=== PATIENT | female | born 1980 | race African-American/Black ===

== ENCOUNTER 2018-02-09 14:16 | Emergency (ER) | payer MEDICAID ==
--- NOTE | 2018-02-09 15:01 | ER Document Report ---
ED Medical Screen (RME) - General Chief Complaint: OB Problem (<20wks) Stated Complaint: CRAMPING/SPOTTING Time Seen by Provider: 02/09/18 14:57 Notes: Patient is complaining of some abdominal cramping and spotting. Patient just found out that she is by a positive home test. She says her last menstrual period was 01/24. This would be the patient's seventh . She has had cramping for the last week and spotting started a couple of days ago. TRAVEL OUTSIDE OF THE [place] IN LAST 30 DAYS: No - Related Data Allergies/Adverse Reactions: No Known Allergies Allergy (Verified 02/09/18 14:16) Past Medical History - Social History Chew tobacco use (# tins/day): No Frequency of alcohol use: None Drug Abuse: None Renal/ Medical History: Denies: Hx Peritoneal Dialysis Physical Exam - Vital signs Vitals: Temp Pulse Resp BP Pulse Ox 98.6 F 80 16 115/67 100 02/09/18 14:18 02/09/18 14:18 02/09/18 14:18 02/09/18 14:18 02/09/18 14:18 Course - Vital Signs Vital signs: Temp Pulse Resp BP Pulse Ox 98.6 F 80 16 115/67 100 02/09/18 14:18 02/09/18 14:18 02/09/18 14:18 02/09/18 14:18 02/09/18 14:18
[2018-02-09 15:43] LABS: ABSOLUTE EOSINOPHILS # (AUTO) 0.1 10^3/uL (0.0-0.6); ABSOLUTE LYMPHOCYTES (AUTO) 2.3 10^3/uL (0.5-4.7); ABSOLUTE MONOCYTES (AUTO) 0.6 10^3/uL (0.1-1.4); ABSOLUTE NEUT (AUTO) 3.5 10^3/uL (1.7-8.2); BASOPHILS % (AUTO) 0.6 % (0-2); EOSINOPHILS % (AUTO) 1.1 % (0-6); HEMATOCRIT 35.8 % (36.0-47.0); LYMPHOCYTES % (AUTO) 35.9 % (13-45); MEAN CORPUSCULAR HEMOGLOBIN 29.8 pg (27.0-33.4); MEAN CORPUSCULAR HGB CONC 33.6 g/dL (32.0-36.0); MEAN CORPUSCULAR VOLUME 89 fl (80-97); MONOCYTES % (AUTO) 9.4 % (3-13); PLATELET COUNT 199 10^3/uL (150-450); RED BLOOD COUNT 4.04 10^6/uL (3.72-5.28); RED CELL DISTRIBUTION WIDTH 13.7 % (11.5-14.0); TOTAL CELLS COUNTED % (AUTO) 100 %; WHITE BLOOD COUNT 6.5 10^3/uL (4.0-10.5)
[2018-02-09 15:49] LABS: APPEARANCE,URINE SLIGHTLY-CLOUDY; BILIRUBIN,URINE NEGATIVE (NEGATIVE); COLOR,URINE YELLOW; GLUCOSE, URINE NEGATIVE (NEGATIVE); KETONES,URINE NEGATIVE (NEGATIVE); LEUKOCYTE ESTERASE,URINE TRACE (NEGATIVE); NITRITE,URINE NEGATIVE (NEGATIVE); PROTEIN,URINE NEGATIVE (NEGATIVE); URINE SPECIFIC GRAVITY 1.028
[2018-02-09] MEDS ORDERED: NORMAL SALINE 1000 ML 1,000 ML IV ONE (17:01)
[2018-02-09] MEDS ORDERED: METOCLOPRAMIDE HCL INJ/PF 10 MG/2 ML SDV IV ONE (17:01)
--- NOTE | 2018-02-09 17:14 | RADIOLOGY REPORT (SQ) ---
EXAM DESCRIPTION: U/S OB TRANSVAGINAL W/O DOP COMPLETED DATE/TIME: 02/09/2018 5:00 pm REASON FOR STUDY: Cramping, spotting . Positive home COMPARISON: None. TECHNIQUE: Transvaginal static and realtime grayscale images acquired of the pelvis. Additional victoria cted spectral and color Doppler images recorded. All images stored on PACs. [facility] [place] CLINICAL DATES: 6 weeks, 5 days LIMITATIONS: None. FINDINGS: FETUS: Candidate gestational sac identified measuring 2.4 cm. No pole identified. ULTRASOUND EGA: 7 weeks, 3 days ULTRASOUND NICOLE: 09/25/2018 EFW: Not applicable less than 20 weeks. CRL: Not visualized. FHR: Not visualized. SURVEY: Too early to assess. AMNIOTIC FLUID: Not applicable. PLACENTA: Not yet developed due to early gestation. SUBCHORIONIC BLEED: No. SIZE OF BLEED: Not applicable. UTERUS: No masses. No anomalies. CERVICAL LENGTH: 4.7 cm. Closed. RIGHT ADNEXA: Right ovary is obscured by bowel gas. LEFT ADNEXA: Left ovary is obscured by bowel gas. FREE FLUID: None. OTHER: No other significant finding. IMPRESSION: Candidate intrauterine gestational sac identified measuring 2.4 cm, sonographic gestatio nal age 7 weeks, 3 days. Early of uncertain viability given lack of identified pole. Recommend follow-up ultrasound in 7 to 14 days to ensure continued development and viability. Trimester of : First - 0 to 13 weeks. TECHNICAL DOCUMENTATION: JOB ID: [id number] [employer]- All Rights Reserved rev Reading location - IP/workstation name: [email or web address]
--- NOTE | 2018-02-09 19:19 | ER Document Report ---
ED GI/ - General Chief Complaint: OB Problem (<20wks) Stated Complaint: CRAMPING/SPOTTING Time Seen by Provider: 02/09/18 14:57 Mode of Arrival: Ambulatory Information source: Patient Notes: Patient is a 37-year-old obese female comes emergency room complaining of being and having some lower abdominal cramping with spotting and some vomiting. Patient states she did not know she was until 1 week ago when she took her home e.p.t. test and it turned positive. Since that point time she has been having developing nausea and vomiting mostly after meals. Begin to the point where she does not want to eat anything but when she tries she throws it up. She is giving him difficulty keeping fluids down. Patient also states that she is having some lower abdominal cramping that is intermittent and that she also has some spotting when she wipes occasionally a pinkish to brownish tinge but is just very minor. Patient is 6 and para 6 last child was delivered 6 years ago. She does not currently have a local DIGITAL FORENSIC ANALYST. TRAVEL OUTSIDE OF THE [place] IN LAST 30 DAYS: No - HPI Patient complains to provider of: , Vaginal bleeding Onset: Last week Timing/Duration: Gradual, Intermittent, Persistent Quality of pain: Cramping Severity at maximum: Moderate Pain Level: 2 Context: Location: Suprapubic, Pelvis Adult Front & Back Diagram: 1 - Area of some mild discomfort on palpation 2 - Local area of cramping that is intermittent. Vaginal bleeding (Compared to normal period): Spotting, Seam Stay Stitcher Menstrual period history: LMP: December 24, 2017 : 6 Para: 6 Abortions: 0 heart tones (bpm): 0 ABO type: B positive OB ultrasound done: Yes vitamins taken: No Sexual history: Active Associated symptoms: Nausea, Vomiting. denies: Vaginal discharge Exacerbated by: Denies Relieved by: Denies Similar symptoms previously: No Recently seen / treated by doctor: No - Related Data Allergies/Adverse Reactions: No Known Allergies Allergy (Verified 02/09/18 14:16) Past Medical History - General Information source: Patient - Social History Smoking Status: Never Smoker Cigarette use (# per day): No Chew tobacco use (# tins/day): No Smoking Education Provided: No Frequency of alcohol use: None Drug Abuse: None Family History: Reviewed & Not Pertinent Patient has suicidal ideation: No Patient has homicidal ideation: No Renal/ Medical History: Denies: Hx Peritoneal Dialysis Review of Systems - Review of Systems Constitutional: No symptoms reported EENT: No symptoms reported Cardiovascular: No symptoms reported Respiratory: No symptoms reported Gastrointestinal: No symptoms reported Genitourinary: No symptoms reported Female Genitourinary: See HPI, , Vaginal bleeding Musculoskeletal: No symptoms reported Skin: No symptoms reported Hematologic/Lymphatic: No symptoms reported Neurological/Psychological: No symptoms reported -: Yes All other systems reviewed and negative Physical Exam - Vital signs Vitals: Temp Pulse Resp BP Pulse Ox 98.6 F 80 16 115/67 100 02/09/18 14:18 02/09/18 14:18 02/09/18 14:18 02/09/18 14:18 02/09/18 14:18 Interpretation: Normal - Notes Notes: PHYSICAL EXAMINATION: GENERAL: Well-appearing, well-nourished and in no acute distress. HEAD: Atraumatic, normocephalic. EYES: Pupils equal round and reactive to light, extraocular movements intact, conjunctiva are normal. ENT: Nares patent, oropharynx clear without exudates. Moist mucous membranes. NECK: Normal range of motion, supple without lymphadenopathy LUNGS: Breath sounds clear to auscultation bilaterally and equal. No wheezes rales or rhonchi. HEART: Regular rate and rhythm without murmurs ABDOMEN: Soft, nontender, nondistended abdomen. No guarding, no rebound. No masses appreciated. Continued examination down to the pelvic area does not show any reproducible type of tenderness or discomfort. Patient has bowel sounds all 4 quads and again she is nontender to percussion or to palpation. Female : Patient preferred not to have the pelvic this time. Musculoskeletal: Normal range of motion, no pitting or edema. No cyanosis. NEUROLOGICAL: Cranial nerves grossly intact. Normal speech, normal gait. Normal sensory, motor exams PSYCH: Normal mood, normal affect. SKIN: Warm, Dry, normal turgor, no rashes or lesions noted. Course - Re-evaluation Re-evalutation: 02/09/18 19:57 Patient originally told me that she was unable to keep any food or fluid down so we went ahead and started an IV we gave her a liter of fluids and we used Reglan for the antinausea medication which seemed to work wonderfully. She was able to have a oral challenge after she had returned from the ultrasound. Her ultrasound though positive with an IUP is concerning for underdevelopment at 7 weeks. I have relayed this to the patient stating that there is not a guarantee that this can go full-term yet. Radiology has requested a repeat ultrasound in 7-14 days and I have informed patient that she really needs to see an OB much sooner than that. I have given her a list of the obese in town plus the women's health clinic. Patient is aware that this is a questionable at best right now. She understands that immediate follow-up by OB is very essential and she will try to contact someone Sunday morning. I have informed her that if she starts to bleed more massively or have increased amount of pain to return to ER for a recheck. - Vital Signs Vital signs: Temp Pulse Resp BP Pulse Ox 98.4 F 71 15 108/61 99 02/09/18 19:29 02/09/18 19:29 02/09/18 19:29 02/09/18 19:29 02/09/18 19:29 - Laboratory Result Diagrams: 02/09/18 15:10 Laboratory results interpreted by me: 02/09/18 02/09/18 02/09/18 15:10 15:10 15:10 Hct 35.8 L Beta HCG, Quant 92645.00 H Urine Urobilinogen 2.0 H Ur Leukocyte Esterase TRACE H Urine Ascorbic Acid 40 H Discharge - Discharge Clinical Impression: Threatened , Hyperemesis gravidarum Condition: Stable Disposition: HOME, SELF-CARE Instructions: Bleeding During Early ([facility]), Ob-Bog Worker Doctors, ([facility]), Threatened Miscarriage ([facility]) Additional Instructions: As we discussed is highly important that she get established with an DIGITAL FORENSIC ANALYST as soon as possible. As we also discussed this is a threatened miscarriage at this point because of the mild spotting you have when you wipe. Also because of the gestational age and size or not matching up very well and there is no heartbeat at 7 weeks. Radiologist recommends a follow-up ultrasound in 7- 14days I would hope that you see an DIGITAL FORENSIC ANALYST sooner than that. I will give you a list of DIGITAL FORENSIC ANALYST's in the area. Also can give you the name of the DIGITAL FORENSIC ANALYST apron operator today which is Dr. Joie Whitney and I will give you her on referral on discharge. You may contact her office to see if she can accommodate you. Should you have increasing amount of bleeding or increasing amount of pain return to ER at once for recheck. Prescriptions: Metoclopramide HCl [Reglan 10 mg Tablet] 1 - 2 tab PO ACHS #25 tablet Forms: Return to Work Referrals: [facility] [Provider Group] - Follow up as needed
[2018-02-09 19:30] VITALS: BP 108/61
== END 2018-02-09 19:30 | disposition home or self-care (01) ==
LOC: ER 14:16
DX: O20.0 Threatened abortion (principal); O21.0 Mild hyperemesis gravidarum; O26.891 Other specified pregnancy related conditions, first trimester; R10.2 Pelvic and perineal pain; O99.211 Obesity complicating pregnancy, first trimester; Z3A.01 Less than 8 weeks gestation of pregnancy
CPT/HCPCS: 99284; 96361; 96374; 86900; 86901; 36415; 84702; 85025; 81001; 76817; J2765; J7030

== ENCOUNTER 2018-03-05 10:08 | Emergency (ER) | payer MEDICAID ==
[2018-03-05] MEDS ORDERED: PROMETHAZINE HCL 25 MG TABLET PO ONE (10:52)
[2018-03-05] MEDS ORDERED: ACETAMINOPHEN 325 MG TABLET PO ONE (10:53)
--- NOTE | 2018-03-05 10:56 | ER Document Report ---
ED Flu Like - General Chief Complaint: Flu Symptoms Stated Complaint: VOMITING, FLU SYMPTOMS Time Seen by Provider: 03/05/18 10:45 Mode of Arrival: Ambulatory Information source: Patient Notes: 37-year-old female who is 9 weeks presents emergency department complaints of headache, chills, generalized weakness, myalgias, rhinorrhea, sore throat, cough intermittently over the last month. Patient states that her children have had similar symptoms. She states that initially her symptoms improved and then she began getting sick again about a week ago. Patient denies any alleviating or exacerbating factors. Has not taken any medication for symptom relief. Patient has had care. She followed up at the women's health clinic yesterday and had an ultrasound done. A live IUP was appreciated. Patient denies any abdominal pain or vaginal bleeding. TRAVEL OUTSIDE OF THE [place] IN LAST 30 DAYS: No - HPI Onset: Other - intermittently over the last month Timing/Duration: Intermittent Quality of pain: No pain Severity: None Pain Level: Denies Associated symptoms: Body/muscle aches, Chills, Nonproductive cough, Headache, Nausea, Rhinnorhea, Sore throat Similar symptoms previously: Yes Recently seen / treated by doctor: No - Related Data Allergies/Adverse Reactions: No Known Allergies Allergy (Verified 02/09/18 14:16) Past Medical History - General Information source: Patient - Social History Smoking Status: Never Smoker Family History: Reviewed & Not Pertinent Patient has suicidal ideation: No Patient has homicidal ideation: No Renal/ Medical History: Denies: Hx Peritoneal Dialysis Review of Systems - Review of Systems Constitutional: Chills EENT: Nose congestion, Nose discharge Cardiovascular: No symptoms reported Respiratory: Cough Gastrointestinal: Diarrhea Genitourinary: No symptoms reported Female Genitourinary: No symptoms reported Musculoskeletal: No symptoms reported Skin: No symptoms reported Hematologic/Lymphatic: No symptoms reported Neurological/Psychological: No symptoms reported -: Yes All other systems reviewed and negative Physical Exam - Vital signs Vitals: Temp Pulse Resp BP Pulse Ox 99.2 F 102 H 18 130/65 H 87 L 03/05/18 10:22 03/05/18 10:22 03/05/18 10:22 03/05/18 10:22 03/05/18 10:22 - Notes Notes: PHYSICAL EXAMINATION: GENERAL: Well-appearing, well-nourished and in no acute distress. HEAD: Atraumatic, normocephalic. EYES: Pupils equal round and reactive to light, extraocular movements intact, conjunctiva are normal. ENT: Nares patent, oropharynx clear without exudates. Moist mucous membranes. NECK: Normal range of motion, supple without lymphadenopathy LUNGS: Breath sounds clear to auscultation bilaterally and equal. No wheezes rales or rhonchi. HEART: Regular rate and rhythm without murmurs ABDOMEN: Soft, nontender, nondistended abdomen. No guarding, no rebound. No masses appreciated. Female : deferred Musculoskeletal: Normal range of motion, no pitting or edema. No cyanosis. NEUROLOGICAL: Cranial nerves grossly intact. Normal speech, normal gait. Normal sensory, motor exams PSYCH: Normal mood, normal affect. SKIN: Warm, Dry, normal turgor, no rashes or lesions noted. Course - Re-evaluation Re-evalutation: 03/05/18 13:02 Labs are positive for influenza and urinary tract infection. I will start the patient on keflex. As her respiratory symptoms have been present for the last month, I will not start tamiflu. Patient instructed to take the antibiotic as directed, to follow up with her GAS WELDER APPRENTICE and primary care physician this week, and to return if she has worsening symptoms. Patient is agreeable with the plan of care. - Vital Signs Vital signs: Temp Pulse Resp BP Pulse Ox 99.2 F 102 H 18 130/65 H 87 L 03/05/18 10:22 03/05/18 10:22 03/05/18 10:22 03/05/18 10:22 03/05/18 10:22 - Laboratory Laboratory results interpreted by me: 03/05/18 11:26 Urine Protein 30 H Urine Urobilinogen 2.0 H Ur Leukocyte Esterase LARGE H Urine Ascorbic Acid 40 H Discharge - Discharge Clinical Impression: Influenza A Urinary tract infection Qualifiers: Urinary tract infection type: site unspecified Hematuria presence: without hematuria Qualified Code(s): N39.0 - Urinary tract infection, site not specified Disposition: HOME, SELF-CARE Instructions: Urinary Tract Infection ([facility]), Influenza ([facility]) Prescriptions: Cephalexin Monohydrate [Keflex 500 mg Capsule] 500 mg PO BID 7 Days #14 capsule Referrals: SHERMAN ANGEL MD [ACTIVE STAFF] - Follow up as needed NATHAN AVILA MD [ACTIVE STAFF] - Follow up as needed
[2018-03-05 12:21] LABS: APPEARANCE,URINE CLOUDY; BILIRUBIN,URINE NEGATIVE (NEGATIVE); COLOR,URINE YELLOW; GLUCOSE, URINE NEGATIVE (NEGATIVE); KETONES,URINE NEGATIVE (NEGATIVE); LEUKOCYTE ESTERASE,URINE LARGE (NEGATIVE); NITRITE,URINE NEGATIVE (NEGATIVE); PROTEIN,URINE 30 mg/dL (NEGATIVE); URINE SPECIFIC GRAVITY 1.032
[2018-03-05 12:30] LABS: A TYPE INFLUENZA AG POSITIVE (NEGATIVE); B INFLUENZA AG NEGATIVE (NEGATIVE)
[2018-03-05] MEDS ORDERED: CEPHALEXIN 500 MG CAPSULE PO ONE (13:02)
[2018-03-05 13:36] VITALS: BP 110/61
== END 2018-03-05 13:48 | disposition home or self-care (01) ==
LOC: ER 10:08
DX: O99.511 Diseases of the respiratory system complicating pregnancy, first trimester (principal); J10.1 Influenza due to other identified influenza virus with other respiratory manifestations; J34.89 Other specified disorders of nose and nasal sinuses; O23.41 Unspecified infection of urinary tract in pregnancy, first trimester; O26.891 Other specified pregnancy related conditions, first trimester; R51 Headache; R68.83 Chills (without fever); R53.1 Weakness; R05 Cough; R19.7 Diarrhea, unspecified; R09.81 Nasal congestion; O99.89 Other specified diseases and conditions complicating pregnancy, childbirth and the puerperium; M79.10 Myalgia, unspecified site; Z3A.09 9 weeks gestation of pregnancy
CPT/HCPCS: 99283; 87086; 87088; 81001; 87186; 87804; J3490 ×2

== ENCOUNTER 2019-03-10 07:33 | Inpatient (IN) | payer MEDICAID ==
[2019-03-10 08:02] LABS: APPEARANCE,URINE SLIGHTLY-CLOUDY; BILIRUBIN,URINE NEGATIVE (NEGATIVE); COLOR,URINE YELLOW; GLUCOSE, URINE NEGATIVE (NEGATIVE); KETONES,URINE NEGATIVE (NEGATIVE); LEUKOCYTE ESTERASE,URINE NEGATIVE (NEGATIVE); NITRITE,URINE NEGATIVE (NEGATIVE); PROTEIN,URINE NEGATIVE (NEGATIVE); URINE SPECIFIC GRAVITY 1.017
[2019-03-10 08:21] LABS: URINE AMPHETAMINES SCREEN NEGATIVE; URINE BARBITURATES SCREEN NEGATIVE; URINE BENZODIAZEPINES SCREEN NEGATIVE; URINE COCAINE SCREEN NEGATIVE; URINE MARIJUANA (THC) SCREEN NEGATIVE; URINE METHADONE SCREEN NEGATIVE; URINE PHENCYCLIDINE SCREEN NEGATIVE
--- NOTE | 2019-03-10 09:14 | Admission Physical ---
Datetime Report Generated by CPN: 03/10/2019 09:14 CURRENT ADMISSION Chief Complaint: Uterine Contractions Indication for Induction: Not Applicable Indication for Induction- Other: n/a Admit Impression : Active Labor Admit Plan: Admit to Unit Admit Plan- Other: AMA HTN on admission grand multip Hx 15 wk loss Trisomy 18 Obesity ALLERGIES Medication Allergies: No Medication Allergies: Latex, Natural Rubber (03/10/2019) Latex: Unknown Food Allergies: mushrooms Environmental Allergies: none OBSTETRICAL HISTORY EDC: 03/19/2019 00:00 : 8 Para: 6 : 1 SAB: 1 Livin Gestational Diabetes: No Rh Sensitization: No Incompetent Cervix: No MARISSA: No Infertility: No ART Treatment: No Uterine Anomaly: No IUGR: No Hx Previous C/S: No Macrosomia: No Hx Loss/Stillborn: No PIH: No Hx : No Placenta Previa/Abruption: No Depression/PP Depression: No PTL/PROM: Yes Post Hemorrhage: No Current Procedures: Ultrasound; NST Obstetrical History Comments: G1- vaginal deliv, 1999 G2- vaginal deliv, 2002 G3- vaginal deliv, 2005 G4- vaginal deliv, 2007 G5- vaginal deliv, 2009 G6- vaginal deliv, 2011 G7- loss at 15.2 weeks, lethal cardiac anomaly, trisomy 18 G8- Current SEE RECORDS Alcohol: No Marijuana : No Cocaine: No Other Illicit Drugs: No Cigarettes: Never Smoker. [id number] MEDICAL HISTORY Diabetes: No Blood Transfusion: No Pulmonary Disease (Asthma, TB): No Breast Disease: No Hypertension: No Ordnance Officer Surgery: No Heart Disease: No Hosp/Surgery: No Autoimmune Disorder: No Anesthetic Complications: No Kidney Disease: No Abnormal Pap Smear: No Neuro/Epilepsy: No Psychiatric Disorders: No Other Medical Diseases: No Hepatitis/Liver Disease: No Significant Family History: No Varicosities/Phlebitis: No Trauma/Violence : No Thyroid Dysfunction: No INFECTIOUS HISTORY Gonorrhea: No Genital Herpes: No Chlamydia: No Tuberculosis: No Syphilis: No Hepatitis: No HIV/AIDS Exposure: No Rash or Viral Illness: No HPV: No PHYSICAL EXAM General: Normal HEENT: Deferred Neurologic: Normal Thyroid: Deferred Heart: Normal Lungs: Normal Breast: Deferred Back: Deferred Abdomen: Normal Genitourinary Exam: Normal Extremities: Abnormal DTRs: Deferred Pelvic Type: Adequate Physical Exam Comments: cervix exam x 2 per RN, change noted from 4-5cm Vital Signs: Reviewed Details Vital Signs: elevated BPs on arrival FETUS A EGA: 38.5 Monitoring: External US FHR- Baseline: 145 Accelerations: 15X15 Decelerations: None FHR Category: Category I Presentation: Vertex Admit Comment: GBS neg plans epidural PLANS FOR LABOR AND DELIVERY Labor and Delivery: None Pain Management: Epidural Feeding Preference: Both Benefit of Breast Feed Discussed: Yes Circumcision: N/A INFORMED CONSENT Assignment: Loraine Peña MD Signature: with User ID: [email or web address] : with User ID: [email or web address]
[2019-03-10] MEDS ORDERED: RINGERS SOLUTION,LACTATED 1,000 ML IV ONE (09:23)
[2019-03-10] MEDS ORDERED: OXYTOCIN 10 UNIT/ML VIAL ONE (09:46)
[2019-03-10] MEDS ORDERED: LIDOCAINE 1% INJ-PF (10 MG/ML) 30 ML SDV ONE (09:47)
[2019-03-10] MEDS ORDERED: MISOPROSTOL 0.2 MG TABLET ONE (09:47)
[2019-03-10] MEDS ORDERED: OXYTOCIN/NORMAL SALINE 20 UNIT/1,000 ML RTUINJ ONE (09:47)
[2019-03-10 10:14] LABS: APPEARANCE,URINE CLEAR; BILIRUBIN,URINE NEGATIVE (NEGATIVE); COLOR,URINE YELLOW; GLUCOSE, URINE NEGATIVE (NEGATIVE); KETONES,URINE NEGATIVE (NEGATIVE); LEUKOCYTE ESTERASE,URINE NEGATIVE (NEGATIVE); NITRITE,URINE NEGATIVE (NEGATIVE); PROTEIN,URINE NEGATIVE (NEGATIVE); URINE SPECIFIC GRAVITY 1.015
[2019-03-10 10:18] LABS: HEMATOCRIT 32.4 % (36.0-47.0); MEAN CORPUSCULAR HEMOGLOBIN 29.7 pg (27.0-33.4); MEAN CORPUSCULAR HGB CONC 33.9 g/dL (32.0-36.0); MEAN CORPUSCULAR VOLUME 88 fl (80-97); PLATELET COUNT 155 10^3/uL (150-450); RED BLOOD COUNT 3.69 10^6/uL (3.72-5.28); RED CELL DISTRIBUTION WIDTH 13.7 % (11.5-14.0)
[2019-03-10] MEDS ORDERED: EPHEDRINE SULFATE INJ 50 MG/1 ML AMPULE ONE (10:23)
[2019-03-10] MEDS ORDERED: FENTANYL/BUPIVACAINE/NS/PF 300 MCG/150 ML RTUINJ EPI ONE (10:24)
[2019-03-10] MEDS ORDERED: BUPIVACAINE HCL 0.25 % INJ/PF (2.5 MG/1 ML) 30 ML VIAL ONE (10:24)
[2019-03-10] MEDS ORDERED: FENTANYL CITRATE INJ/PF 100 MCG/2 ML AMPUL ONE (10:34)
[2019-03-10 10:39] LABS: URINE AMPHETAMINES SCREEN NEGATIVE; URINE BARBITURATES SCREEN NEGATIVE; URINE BENZODIAZEPINES SCREEN NEGATIVE; URINE COCAINE SCREEN NEGATIVE; URINE MARIJUANA (THC) SCREEN NEGATIVE; URINE METHADONE SCREEN NEGATIVE; URINE PHENCYCLIDINE SCREEN NEGATIVE
[2019-03-10 10:43] LABS: ALBUMIN 3.1 g/dL (3.5-5.0); ALKALINE PHOSPHATASE 107 U/L (38-126); ANION GAP 9 (5-19); ASPARTATE AMINO TRANSFERASE 19 U/L (14-36); BILIRUBIN,DIRECT 0.2 mg/dL (0.0-0.4); BILIRUBIN,TOTAL 0.6 mg/dL (0.2-1.3); BLOOD UREA NITROGEN 7 mg/dL (7-20); CALCIUM 8.6 mg/dL (8.4-10.2); CARBON DIOXIDE 23 mmol/L (22-30); CHLORIDE 104 mmol/L (98-107); GLUCOSE 82 mg/dL (75-110); POTASSIUM 3.7 mmol/L (3.6-5.0); TOTAL PROTEIN 6.4 g/dL (6.3-8.2); URIC ACID 5.4 mg/dL (2.5-7.0)
[2019-03-10 11:16] LABS: URINE PROTEIN 8.2 mg/dL (<12)
[2019-03-10 11:18] LABS: UR PRO/CREAT RATIO RESULT 0.1 mg/mg (0.0-0.2)
[2019-03-10] MEDS ORDERED: NORMAL SALINE 250 ML IV PRN (12:43)
[2019-03-10] MEDS ORDERED: LIDOCAINE 1.5%/EPINEPHRINE INJ 5 ML AMP ONE ×2 (15:07→15:08)
[2019-03-10] MEDS ORDERED: DIPH/PERTUSS(ACELL)/TETANUS VAC/PF 0.5 ML SYR (>=10YO) IM PRN (16:41)
[2019-03-10] MEDS ORDERED: ZOLPIDEM TARTRATE 5 MG TABLET PO PRN (16:41)
[2019-03-10] MEDS ORDERED: DIBUCAINE 1% OINTMENT 28 GM TP PRN (16:41)
[2019-03-10] MEDS ORDERED: OXYTOCIN/NORMAL SALINE 20 UNIT/1,000 ML RTUINJ IV PRN (16:41)
[2019-03-10] MEDS ORDERED: MEASLES,MUMPS&RUBELLA VACC/PF 0.5 ML VIAL SUBCUT PRN (16:41)
[2019-03-10] MEDS ORDERED: BENZOCAINE/MENTHOL AEROSOL SPRAY 56 ML TOP PRN (16:41)
[2019-03-10] MEDS ORDERED: ACETAMINOPHEN WITH CODEINE #3 TABLET PO PRN (16:41)
--- NOTE | 2019-03-10 19:20 | Delivery Summary ---
Del Sum A-C Datetime Report Generated by CPN: 03/10/2019 19:20 DELIVERY PERSONNEL DELIVERY PERSONNEL: [id number] Delivery Doctor:: Marcella Handley CNM Labor and Delivery Nurse:: marquise Fountain RNlocal company intermodal truck driver Nurse:: HERVE Iniguez Nursery Nurse:: Maye Pacheco [employer] Scout/SPINNING MULE OPERATOR: [facility] [employer] Scout/SPINNING MULE OPERATOR: Carley Dubois MATERNAL INFORMATION Delivery Anesthesia: Epidural Medications During Delivery: none Medications After Delivery: Pitocin Drip 20 Units/1000ml NSS Meds After Delivery Comment: post delivery bolus Estimated Blood Loss (ml): 10 Delivery QBL: 10 Maternal Complications: None Provider Comments: SVDVF over intact perineum ABBI, loose nuchal cord reduced easily, ant shoulder delivered and baby rotated to OA. Infant stimulated and placed on maternal abd, cord clamped x 2 cut per pt after 2 min. 3vc noted, placenta via wiseman spont. Scant vaginal bleeding. Mother and stable. Pitocin infusing. LABOR SUMMARY EDC: 03/19/2019 00:00 No. Babies in Womb: 1 Attempted: No Labor Anesthesia: Epidural LABOR INFORMATION Reason for Induction: Not Applicable Onset of Labor: 03/10/2019 10:00 Complete Dilatation: 03/10/2019 16:08 Oxytocin: N/A Group B Beta Strep: negative Antibiotics # of Doses: 0 Steroids Given: None Reason Steroids Not Administered: Not Applicable Other Reason Not Administered: n/a MEMBRANES Membranes Rupture Method: Artificial Rupture of Membranes: 03/10/2019 11:20 Length of Rupture (hr): 4.98 Amniotic Fluid Color: Clear Amniotic Fluid Amount: Small Amniotic Fluid Odor: Normal STAGES OF LABOR Stage 1 hr: 6 Stage 1 min: 8 Stage 2 hr: 0 Stage 2 min: 11 Stage 3 hr: 0 Stage 3 min: 9 Total Time in Labor hr: 6 Total Time in Labor min: 28 VAGINAL DELIVERY Episiotomy: None Laceration #1: None Laceration Repair: Not Applicable Laceration Repair Note: n/a Sponge Count Correct: N/A Sharps Count Correct: N/A BABY A INFORMATION Infant Delivery Date/Time: 03/10/2019 16:19 Method of Delivery: Vaginal Born in Route : No : N/A Forceps: N/A Vacuum Extraction: N/A Shoulder Dystocia : No PRESENTATION/POSITION BABY A Presentation: Cephalic Cephalic Presentation: Vertex Vertex Position: Right Occipital Anterior Breech Presentation: N/A PLACENTA INFORMATION BABY A Placenta Delivery Time : 03/10/2019 16:28 Placenta Method of Delivery: Spontaneous Placenta Status: Delivered SCORES BABY A Heart Rate 1 min: >100 bpm Resp Effort 1 min: Good Cry Reflex Irritability 1 min: Grimace Muscle Tone 1 min: Active Motion Color 1 min: Body [place], Extremities Blue SCORE 1 MIN: 8 Heart Rate 5 min: >100 bpm Resp Effort 5 min: Good Cry Reflex Irritability 5 min: Cough or Sneeze or Pulls Away Muscle Tone 5 min: Active Motion Color 5 min: Body [place], Extremities Blue SCORE 5 MIN: 9 INFANT INFORMATION BABY A Gestational Age at Delivery: 38.5 Gestational Status: Early Term- 37- 38.6 Weeks Outcome : Liveborn Condition : Stable Infant Sex: Female IDENTIFICATION BABY A Infant Verification Date/Time: 03/10/2019 16:43 ID Band Number: [id number] Mother's Name Verified: Yes Infant RN Verifying Infant: Ronaldo Fountain RN and T Alvarez RN WEIGHT/LENGTH BABY A Infant Birthweight (gm): 3606 Infant Weight (lb): 7 Weight (oz): 15 Length (in): 20.00 (Annotations: Data stored by [facility] on behalf of user) Length (cm): 50.80 CORD INFORMATION BABY A No. Cord Vessels: 3 Nuchal Cord : Around Neck x1, Loose Cord Blood Taken: Yes-For Storage (Mom's Blood type +) Suction: None ASSESSMENT BABY A Skin to Skin: Yes SIGNATURES Assignment: Loraine Peña MD Signature: with User ID: [email or web address] : with User ID: [email or web address] : I was personally available for consultation and serving as supervising physician for the P.
[2019-03-10] MEDS: FERROUS SULFATE 325 MG TABLET PO SCH (19:25)
[2019-03-10] MEDS: DOCUSATE SODIUM 100 MG CAPSULE PO SCH (19:25)
[2019-03-10] MEDS: IBUPROFEN 800 MG TABLET PO SCH (22:36)
[2019-03-10] MEDS ORDERED: FUROSEMIDE 20 MG TABLET PO ONE (22:45)
[2019-03-11] MEDS: IBUPROFEN 800 MG TABLET PO SCH ×3 (05:33→22:04)
[2019-03-11] MEDS: DOCUSATE SODIUM 100 MG CAPSULE PO SCH ×2 (09:35→18:03)
[2019-03-11] MEDS: SENNOSIDES/DOCUSATE 8.6-50 MG 1 EACH TABLET PO SCH (09:35)
[2019-03-11] MEDS: PRENATAL VITAMIN W DHA CAPSULE PO SCH (09:36)
[2019-03-11] MEDS: FUROSEMIDE 20 MG TABLET PO SCH (09:36)
[2019-03-11] MEDS: FERROUS SULFATE 325 MG TABLET PO SCH ×2 (09:37→18:03)
--- NOTE | 2019-03-11 11:20 | PDOC PROGRESS REPORT ---
Subjective-OB Progress Note for:: 03/11/19 Subjective: 38yo G8 now P7 s/p ppd1. Pt. ambulating, voiding and passing gas without difficulty. Reports pain well controlled with medication. No concerns today. Physical Exam (OB) Vital Signs: Temp Pulse Resp BP Pulse Ox 97.5 F 71 16 154/75 H 100 03/11/19 07:48 03/11/19 07:48 03/11/19 07:48 03/11/19 07:48 03/10/19 20:13 Intake & Output 03/10/19 03/11/19 03/12/19 06:59 06:59 06:59 Intake Total 1800 600 Balance 1800 600 Weight 125.3 kg - General General Appearance: Appears well In distress: None - PIH/Pre-Eclampsia Headache: Absent Epigastric Pain: No Visual Changes: No - Episiotomy/Laceration Site Condition: N/A - Lochia Lochia Amount: Small 10-25 ml Lochia Color: Rubra/Red - Abdomen Description: Soft Hernia Present: No Fundal Description: Firm, Midline Fundal Height: u/u - u/2 - Respiratory Respiratory Status: No respiratory distress - Extremities Upper extremity: Normal inspection Lower extremities: Normal inspection - Neurological Cognition: Normal Orientation: AAOx4 - Psychological Associated symptoms: Normal affect, Normal mood Objective-Diagnostic Laboratory: 03/10/19 09:29 03/10/19 09:29 03/10/19 09:29 Blood Type B POSITIVE Antibody Screen NEGATIVE Assessment and Plan(PN) - Assessment and Plan (1) Hypertension affecting Qualifiers: Trimester: third trimester Qualified Code(s): O16.3 - Unspecified maternal hypertension, third trimester Is this a current diagnosis for this admission?: Yes Plan: discovered on admission and continue to be elevated after delivery. Continue to monitor for s/s of pp pre-e. Consider starting bp meds if elevated tonight (2) AMA (advanced maternal age) multigravida 35+ Qualifiers: Trimester: unspecified trimester Qualified Code(s): O09.529 - Supervision of elderly multigravida, unspecified trimester Is this a current diagnosis for this admission?: Yes Plan: delivered (3) Active labor at term Is this a current diagnosis for this admission?: Yes Plan: Routine pp care, delivered (4) Grand multipara in labor Qualifiers: Trimester: third trimester Qualified Code(s): O09.43 - Supervision of with grand multiparity, third trimester Is this a current diagnosis for this admission?: Yes Plan: delivered (5) Vaginal delivery Is this a current diagnosis for this admission?: Yes Plan: Routine pp care - Time Spent with Patient Time with patient: Less than 15 minutes Medications reviewed and adjusted accordingly: Yes - Disposition Anticipated Discharge: Home Within: within 24 hours
[2019-03-11 11:31] LABS: HEMATOCRIT 33.4 % (36.0-47.0); HEMOGLOBIN 11.1 g/dL (12.0-15.5); MEAN CORPUSCULAR HEMOGLOBIN 29.3 pg (27.0-33.4); MEAN CORPUSCULAR HGB CONC 33.2 g/dL (32.0-36.0); MEAN CORPUSCULAR VOLUME 88 fl (80-97); PLATELET COUNT 167 10^3/uL (150-450); RED BLOOD COUNT 3.79 10^6/uL (3.72-5.28); RED CELL DISTRIBUTION WIDTH 13.7 % (11.5-14.0); WHITE BLOOD COUNT 11.2 10^3/uL (4.0-10.5)
[2019-03-11 11:48] LABS: ALKALINE PHOSPHATASE 97 U/L (38-126); ANION GAP 8 (5-19); ASPARTATE AMINO TRANSFERASE 28 U/L (14-36); BILIRUBIN,DIRECT 0.1 mg/dL (0.0-0.4); BILIRUBIN,TOTAL 0.6 mg/dL (0.2-1.3); BLOOD UREA NITROGEN 6 mg/dL (7-20); CARBON DIOXIDE 23 mmol/L (22-30); CHLORIDE 105 mmol/L (98-107); GLUCOSE 95 mg/dL (75-110); POTASSIUM 3.9 mmol/L (3.6-5.0); TOTAL PROTEIN 6.2 g/dL (6.3-8.2)
[2019-03-11] MEDS: ACETAMINOPHEN WITH CODEINE #3 TABLET PO PRN (15:40)
[2019-03-12] MEDS: IBUPROFEN 800 MG TABLET PO SCH (05:49)
[2019-03-12] MEDS: ACETAMINOPHEN WITH CODEINE #3 TABLET PO PRN (07:53)
[2019-03-12] MEDS: FUROSEMIDE 20 MG TABLET PO SCH (09:04)
[2019-03-12] MEDS: FERROUS SULFATE 325 MG TABLET PO SCH (09:05)
[2019-03-12] MEDS: DOCUSATE SODIUM 100 MG CAPSULE PO SCH (09:05)
[2019-03-12] MEDS: PRENATAL VITAMIN W DHA CAPSULE PO SCH (09:05)
[2019-03-12] MEDS: SENNOSIDES/DOCUSATE 8.6-50 MG 1 EACH TABLET PO SCH (09:05)
--- NOTE | 2019-03-12 09:11 | PDOC PROGRESS REPORT ---
Subjective-OB Progress Note for:: 03/12/19 Subjective: patient OOB getting ready to go home, breast feeding, would like a breast pump, lochia small , eating, feels good Physical Exam (OB) Vital Signs: Temp Pulse Resp BP Pulse Ox 98.6 F 72 16 146/91 H 99 03/12/19 07:19 03/12/19 07:19 03/12/19 07:19 03/12/19 07:19 03/12/19 07:19 Intake & Output 03/11/19 03/12/19 03/13/19 06:59 06:59 06:59 Intake Total 1800 600 Balance 1800 600 Weight 125.3 kg - PIH/Pre-Eclampsia DTR's: 1 + Clonus: Negative Headache: Absent Epigastric Pain: No Visual Changes: No - Lochia Lochia Amount: Small 10-25 ml Lochia Color: Rubra/Red - Abdomen Description: Soft, Round Hernia Present: No Fundal Description: Firm, Midline Fundal Height: u/u - u/2 Objective-Diagnostic Laboratory: 03/11/19 10:59 03/11/19 10:59 03/11/19 03/11/19 10:59 10:59 WBC 11.2 H RBC 3.79 Hgb 11.1 L Hct 33.4 L MCV 88 MCH 29.3 MCHC 33.2 RDW 13.7 Plt Count 167 Sodium 135.6 L Potassium 3.9 Chloride 105 Carbon Dioxide 23 Anion Gap 8 BUN 6 L Creatinine 0.58 Est GFR ( Amer) > 60 Glucose 95 Calcium 9.0 Total Bilirubin 0.6 AST 28 Alkaline Phosphatase 97 Total Protein 6.2 L Albumin 3.0 L Assessment and Plan(PN) - Assessment and Plan (1) Hypertension affecting Qualifiers: Trimester: third trimester Qualified Code(s): O16.3 - Unspecified maternal hypertension, third trimester Is this a current diagnosis for this admission?: Yes (2) Vaginal delivery Is this a current diagnosis for this admission?: Yes (3) Grand multipara in labor Qualifiers: Trimester: third trimester Qualified Code(s): O09.43 - Supervision of with grand multiparity, third trimester Is this a current diagnosis for this admission?: Yes (4) AMA (advanced maternal age) multigravida 35+ Qualifiers: Trimester: unspecified trimester Qualified Code(s): O09.529 - Supervision of elderly multigravida, unspecified trimester Is this a current diagnosis for this admission?: Yes (5) Active labor at term Is this a current diagnosis for this admission?: Yes - Time Spent with Patient Time with patient: Less than 15 minutes Medications reviewed and adjusted accordingly: Yes - Disposition Anticipated Discharge: Home Within: within 24 hours
--- NOTE | 2019-03-12 09:18 | PDOC DISCHARGE SUMMARY ---
Impression - Admit/DC Date/PCP Admission Date/Primary Care Provider: 03/10/19 09:05 Discharge Date: 03/12/19 - Discharge Diagnosis (1) Hypertension affecting Is this a current diagnosis for this admission?: Yes (2) Vaginal delivery Is this a current diagnosis for this admission?: Yes (3) Grand multipara in labor Is this a current diagnosis for this admission?: Yes (4) AMA (advanced maternal age) multigravida 35+ Is this a current diagnosis for this admission?: Yes (5) Active labor at term Is this a current diagnosis for this admission?: Yes - Additional Information Resuscitation Status: Full Code Discharge Diet: As Tolerated, Regular Discharge Activity: Activity As Tolerated, No Lifting Over 10 Pounds, No Lifting/Push/Pulling Referrals: SARMAD MONDRAGON MD [ACTIVE STAFF] - ([facility] week) Home Medications: Pnv No.95/Ferrous Fum/Folic AC [ Caplet] 1 cap PO DAILY 04/12/18 HPI Gestational Age: 38.5 Reason(s) for Admission: Onset of Labor Procedures: NST, Ultrasound Intrapartum Procedure(s): Spontaneous Vaginal Delivery - baby home with mom, apgars 8/9, wt = 7-15 Hospital Course Hospital Course: routine Results Laboratory Results: WBC 11.2 10^3/uL (4.0-10.5) H 03/11/19 10:59 RBC 3.79 10^6/uL (3.72-5.28) 03/11/19 10:59 Hgb 11.1 g/dL (12.0-15.5) L 03/11/19 10:59 Hct 33.4 % (36.0-47.0) L 03/11/19 10:59 MCV 88 fl (80-97) 03/11/19 10:59 MCH 29.3 pg (27.0-33.4) 03/11/19 10:59 MCHC 33.2 g/dL (32.0-36.0) 03/11/19 10:59 RDW 13.7 % (11.5-14.0) 03/11/19 10:59 Plt Count 167 10^3/uL (150-450) 03/11/19 10:59 Sodium 135.6 mmol/L (137-145) L 03/11/19 10:59 Potassium 3.9 mmol/L (3.6-5.0) 03/11/19 10:59 Chloride 105 mmol/L (98-107) 03/11/19 10:59 Carbon Dioxide 23 mmol/L (22-30) 03/11/19 10:59 Anion Gap 8 (5-19) 03/11/19 10:59 BUN 6 mg/dL (7-20) L 03/11/19 10:59 Creatinine 0.58 mg/dL (0.52-1.25) 03/11/19 10:59 Est GFR ( Amer) > 60 (>60) 03/11/19 10:59 Est GFR (MDRD) Non-Af > 60 (>60) 03/11/19 10:59 Glucose 95 mg/dL (75-110) 03/11/19 10:59 Uric Acid 5.4 mg/dL (2.5-7.0) 03/10/19 09:29 Calcium 9.0 mg/dL (8.4-10.2) 03/11/19 10:59 Total Bilirubin 0.6 mg/dL (0.2-1.3) 03/11/19 10:59 Direct Bilirubin 0.1 mg/dL (0.0-0.4) 03/11/19 10:59 Neonat Total Bilirubin Not Reportable 03/11/19 10:59 Neonat Direct Bilirubin Not Reportable 03/11/19 10:59 Neonat Indirect Bili Not Reportable 03/11/19 10:59 AST 28 U/L (14-36) 03/11/19 10:59 ALT 11 U/L (<35) 03/11/19 10:59 Alkaline Phosphatase 97 U/L (38-126) 03/11/19 10:59 Lactate Dehydrogenase 162 U/L (120-246) 03/10/19 09:29 Total Protein 6.2 g/dL (6.3-8.2) L 03/11/19 10:59 Albumin 3.0 g/dL (3.5-5.0) L 03/11/19 10:59 Urine Color YELLOW 03/10/19 09:00 Urine Appearance CLEAR 03/10/19 09:00 Urine pH 7.0 (5.0-9.0) 03/10/19 09:00 Ur Specific [place] 1.015 03/10/19 09:00 Urine Protein NEGATIVE mg/dL (NEGATIVE) 03/10/19 09:00 Urine Glucose (UA) NEGATIVE mg/dL (NEGATIVE) 03/10/19 09:00 Urine Ketones NEGATIVE mg/dL (NEGATIVE) 03/10/19 09:00 Urine Blood NEGATIVE (NEGATIVE) 03/10/19 09:00 Urine Nitrite NEGATIVE (NEGATIVE) 03/10/19 09:00 Urine Bilirubin NEGATIVE (NEGATIVE) 03/10/19 09:00 Urine Urobilinogen 2.0 mg/dL (<2.0) H 03/10/19 09:00 Ur Leukocyte Esterase NEGATIVE (NEGATIVE) 03/10/19 09:00 Urine WBC (Auto) 1 /HPF 03/10/19 09:00 Urine Bacteria (Auto) TRACE /HPF 03/10/19 09:00 Squamous Epi Cells Auto 2 /HPF 03/10/19 09:00 Urine Mucus (Auto) RARE /LPF 03/10/19 09:00 Urine Creatinine 136.0 mg/dL (16-327) 03/10/19 09:00 Protein/Creatinin Ratio 0.1 mg/mg (0.0-0.2) 03/10/19 09:00 Urine Total Protein 8.2 mg/dL (<12) 03/10/19 09:00 Urine Ascorbic Acid NEGATIVE (NEGATIVE) 03/10/19 09:00 Urine Opiates Screen NEGATIVE 03/10/19 09:00 Urine Methadone Screen NEGATIVE 03/10/19 09:00 Ur Barbiturates Screen NEGATIVE 03/10/19 09:00 Ur Phencyclidine Scrn NEGATIVE 03/10/19 09:00 Ur Amphetamines Screen NEGATIVE 03/10/19 09:00 U Benzodiazepines Scrn NEGATIVE 03/10/19 09:00 Urine Cocaine Screen NEGATIVE 03/10/19 09:00 U Marijuana (THC) Screen NEGATIVE 03/10/19 09:00 RPR NONREACTIVE (NONREACTIVE) 03/10/19 09:29 Blood Type B POSITIVE 03/10/19 09:29 Blood Type Confirm B POSITIVE 03/10/19 09:29 Antibody Screen NEGATIVE 03/10/19 09:29 Crossmatch See Detail 03/10/19 09:29 Plan Health Concerns: hypertension Plan of Treatment: monitor bp, rtc 1 week check bp Goals: no complications Time Spent: Less than 30 Minutes
[2019-03-12 14:58] VITALS: BP 143/80
== END 2019-03-12 15:10 | disposition home or self-care (01) | DRG 807 ==
LOC: LC 07:33 → LR 09:05 → 2S 18:25
PROVIDERS: ADMIT Student in an Organized Health Care Education/Training Program; ATTEND Student in an Organized Health Care Education/Training Program
PROC: 10E0XZZ Delivery of Products of Conception, External Approach (ICD-10-PCS; principal; 2019-03-10)
PROC: 10907ZC Drainage of Amniotic Fluid, Therapeutic from Products of Conception, Via Natural or Artificial Opening (ICD-10-PCS; 2019-03-10)
DX: O16.4 Unspecified maternal hypertension, complicating childbirth (principal); Z37.0 Single live birth; O69.81X0 Labor and delivery complicated by cord around neck, without compression, not applicable or unspecified; O99.214 Obesity complicating childbirth; E66.9 Obesity, unspecified; Z3A.38 38 weeks gestation of pregnancy; Z91.040 Latex allergy status
CPT/HCPCS: 36000; 36415; 80053; 80307; 81001; 81005; 82570; 83615; 84156; 84550; 85027; 86592; 86850; 86900; 86901; 86920; J2590; J3010; J3490

== ENCOUNTER 2019-04-29 10:03 | Day surgery (SDC) | payer MEDICAID ==
[2019-04-18 09:55] LABS: APPEARANCE,URINE CLEAR; BILIRUBIN,URINE NEGATIVE (NEGATIVE); COLOR,URINE YELLOW; GLUCOSE, URINE NEGATIVE (NEGATIVE); KETONES,URINE NEGATIVE (NEGATIVE); LEUKOCYTE ESTERASE,URINE NEGATIVE (NEGATIVE); NITRITE,URINE NEGATIVE (NEGATIVE); PROTEIN,URINE NEGATIVE (NEGATIVE); URINE SPECIFIC GRAVITY 1.019; UROBILINOGEN,URINE NEGATIVE mg/dL (<2.0)
[2019-04-18 09:58] LABS: HEMATOCRIT 37.3 % (36.0-47.0); HEMOGLOBIN 12.3 g/dL (12.0-15.5); MEAN CORPUSCULAR HEMOGLOBIN 28.9 pg (27.0-33.4); MEAN CORPUSCULAR VOLUME 88 fl (80-97); PLATELET COUNT 196 10^3/uL (150-450); RED BLOOD COUNT 4.26 10^6/uL (3.72-5.28); RED CELL DISTRIBUTION WIDTH 13.5 % (11.5-14.0); WHITE BLOOD COUNT 5.7 10^3/uL (4.0-10.5)
[2019-04-18 10:25] LABS: ALBUMIN 3.8 g/dL (3.5-5.0); ALKALINE PHOSPHATASE 77 U/L (38-126); ANION GAP 10 (5-19); ASPARTATE AMINO TRANSFERASE 17 U/L (14-36); BILIRUBIN,DIRECT 0.3 mg/dL (0.0-0.4); BILIRUBIN,TOTAL 0.5 mg/dL (0.2-1.3); BLOOD UREA NITROGEN 15 mg/dL (7-20); CALCIUM 8.8 mg/dL (8.4-10.2); CARBON DIOXIDE 26 mmol/L (22-30); CHLORIDE 104 mmol/L (98-107); GLUCOSE 92 mg/dL (75-110); POTASSIUM 4.5 mmol/L (3.6-5.0); TOTAL PROTEIN 7.2 g/dL (6.3-8.2)
--- NOTE | 2019-04-18 20:17 | EKG REPORT ---
SEVERITY:- NORMAL ECG - SINUS RHYTHM NONSPECIFIC ST-T CHANGES- INFERIOR LATERAL LEADS : Confirmed by: Bret Valdes MD 18-Apr-2019 20:16:10
[~2019-04-29 10:03] MED LIST: BUPIVACAINE HCL 0.25 % INJ/PF (2.5 MG/1 ML) 30 ML VIAL ONE; LACTATED RINGERS 1000 ML IV PRN
[2019-04-29] MEDS ORDERED: FENTANYL CITRATE INJ/PF 100 MCG/2 ML AMPUL ONE (11:46)
[2019-04-29] MEDS ORDERED: MIDAZOLAM 2 MG/2 ML INJ ONE (11:46)
[2019-04-29] MEDS ORDERED: PROPOFOL INJ 200 MG/20 ML VIAL IV ONE (11:47)
[2019-04-29] MEDS ORDERED: PROMETHAZINE HCL INJ 25 MG/1 ML VIAL IV PRN ×2 (12:27)
[2019-04-29] MEDS ORDERED: FENTANYL CITRATE INJ/PF 100 MCG/2 ML AMPUL IV PRN ×3 (12:27)
[2019-04-29] MEDS ORDERED: MEPERIDINE HCL/PF INJ 25 MG/1 ML DISP.SYRIN IV PRN (12:27)
[2019-04-29] MEDS ORDERED: DIPHENHYDRAMINE HCL 50 MG/ML VIAL IV PRN (12:27)
[2019-04-29] MEDS ORDERED: OXYCODONE-ACETAMINOPHEN 5-325 MG TABLET PO PRN ×2 (12:27)
[2019-04-29] MEDS ORDERED: ACETAMINOPHEN 1,000 MG/100 ML RTUPB IV ONE (13:09)
[2019-04-29] MEDS ORDERED: KETOROLAC TROMETHAMINE INJ/PF 30 MG/1 ML SDV ONE (13:10)
[2019-04-29] MEDS ORDERED: HYDROMORPHONE HCL INJ/PF 2 MG/ML AMPULE ONE (13:11)
[2019-04-29 17:10] VITALS: BP 138/89
[2019-04-29] MEDS ORDERED: DEXAMETHASONE SOD PHOSPHATE INJ 4 MG/1 ML VIAL ONE (21:22)
[2019-04-29] MEDS ORDERED: ONDANSETRON HCL INJ/PF 4 MG/2 ML SDV ONE (21:22)
[2019-04-29] MEDS ORDERED: SUCCINYLCHOLINE CHLORIDE INJ 200 MG/10 ML VIAL ONE (21:22)
[2019-04-29] MEDS ORDERED: LIDOCAINE 2% INJ-PF (20 MG/ML) 2 ML AMPUL ONE (21:22)
--- NOTE | 2019-05-07 10:13 | Operative Report ---
Operative Report DATE OF SURGERY: 04/29/19 PREOPERATIVE DIAGNOSIS: Multiparity, Undesired Fertility, Obesity POSTOPERATIVE DIAGNOSIS: ANAMIKA OPERATION: Laparoscopic Bilateral Tubal Occlusion with Filschie Clips SURGEON: MOLINA MORALES ANESTHESIA: GA TISSUE REMOVED OR ALTERED: None COMPLICATIONS: None ESTIMATED BLOOD LOSS: 5ml INTRAOPERATIVE FINDINGS: Normal Bilateral tubes/ovaries, normal uterus, Bilateral tubal sterilization filschie clips placed PROCEDURE: Anesthesiologist: Eyal AARON, Lianne Perry CRNA IV fluids: [200ml] Urine output: [void] Indications: [31yo presents for bilateral tubal occlusion/sterilization due to undesired fertility. She is 100% sure that she has completed childbearing. She declines COCPs, LARC/IUD, and desires permanent sterilization. The risks, benefits, and alternatives were reviewed and she desires to proceed with planned procedure.] Procedure:The patient was taken to the operating room where general anesthesia was obtained without difficulty. The patient was then examined under anesthesia with findings as noted above with a small anteverted uterus. She was then placed in dorsal supine lithotomy position and prepped and draped in the normal sterile fashion. [place] speculum was then placed in the patient's vagina and the anterior lip of the cervix grasped with a single-tooth tenaculum. A clearview uterine manipulator was then advanced into the uterus to provide a means of manipulation of the uterus. The speculum and tenaculum were then removed from the patient's cervix and vagina. Attention was then turned to the patient's abdomen where a 5 mm infraumbilical skin incision was then made. The Optiview trocar with 0 laparoscope was then advanced without difficulty under direct visualization with the Optiview trocar. This was performed while tenting the abdominal wall and these will fashion. Intraperitoneal placement was confirmed by the direct visualization. Pneumoperitoneum was then obtained with approximately 4 L carbon dioxide gas. Survey of the patient's abdomen and pelvis revealed findings as noted above. A second skin incision was then made in the midline approximately 2cm above the symphysis pubis. These incisions were made under direct vizualization with the laparoscope. The second trochar was t hen advanced under direct visualization of the laparoscope at the sites. The right fallopian tube was then identified and followed out to the fimbriated end and filschie clips was placed in the mid ampullary portion of the fallopian tube. The right ovary was noted to be normal and vasculature remained intact to this ovary. Attention was then turned to the left adnexa at which time the left fallopian tube was identified and followed out to the fimbriated end and filschie clip placed in the mid ampullary portion of the fallopian tube. The left ovary was noted to be normal and vasculature remained intact to this ovary. All operative sites were visualized and noted to be hemostatic. The additional trochar in the midline was removed under direct visualization. The 10 mm trocar was then removed after abdominal insufflation was removed. The fascia at the 10 mm trocar site was closed with 0 Vicryl on a UR 6 needle. The skin at all trocar sites were closed with 3-0 Monocryl in a subcuticular fashion with overlying Dermabond. No antibiotics were indicated for this procedure. After completion of skin closure of the trocar sites attention was then turned to the vagina where the uterine manipulator was removed and the bivalve speculum was replaced. Silver nitrate was applied to the tenaculum sites for hemostasis and the speculum was removed. Sponge lap needle and instrument counts were correct 3. The patient tolerated the procedure well and was taken to the recovery area awake and in stable condition.
== END 2019-04-29 15:40 | disposition home or self-care (01) ==
LOC: OROUT 10:03
PROVIDERS: ATTEND Student in an Organized Health Care Education/Training Program
DX: Z30.2 Encounter for sterilization (principal); E66.9 Obesity, unspecified; Z68.39 Body mass index [BMI] 39.0-39.9, adult; Z87.892 Personal history of anaphylaxis; Z91.040 Latex allergy status; Z91.09 Other allergy status, other than to drugs and biological substances
CPT/HCPCS: 93005; 36415; 85027; 81005; 81025; 80053; 93010; 00851; 58671; J2250; J1100; J3010; J1885; J1170; J0330; J2405; J3490 ×2; J2704; J0131; 851